=== PATIENT | female | born 1995 | race Caucasian/White ===

== ENCOUNTER 2016-08-10 23:08 | Emergency (ER) | payer OTHER ==
[~2016-08-10] VITALS: Ht 165.1 cm; Wt 49.0 kg
[2016-08-10 23:09] VITALS: BP 135/79; PULSE 86; RESP 14; TEMP 98.3; O2SAT 98
[2016-08-11] MEDS ORDERED: IBUPROFEN 600 MG TAB PO ONE (04:45)
--- NOTE | 2016-08-11 05:03 | PD ---
HPI Chief Complaint: Injury Time Seen by Provider: 04:04 Travel History International Travel<30 days: No Contact w/Intl Traveler<30days: No History of Present Illness HPI Patient is 21 years old. She arrives with left arm pain. She'll follow-up work. She has no other injury to offer. Pain has been constant. It's worse with palpation or range of motion. No numbness tingling. She states she slipped on wet floor. Pain is worse with range of motion. [facility] Past Medical History Medical History: Denies Significant Hx ?: Unknown LMP: 06/22/16 Past Surgical History Surgical History: No Previous Surgery Social History Alcohol Use: No Tobacco Use: No Substance Use: No Allergies-Medications (Allergen,Severity, Reaction): Coded Allergies: No Known Allergies (Unverified , 08/10/16) Reported Meds & Prescriptions Reported Meds & Active Scripts Active No Active Prescriptions or Reported Medications Review of Systems Except as stated in HPI: all other systems reviewed are Neg Physical Exam Narrative GENERAL: 21-year-old female pleasant no acute distress SKIN: Warm and dry. HEAD: Atraumatic. Normocephalic. EYES: Pupils equal and round. No scleral icterus. No injection or drainage. ENT: No nasal bleeding or discharge. Mucous membranes pink and moist. NECK: Trachea midline. No JVD. CARDIOVASCULAR: Regular rate and rhythm. No murmur appreciated. RESPIRATORY: No accessory muscle use. Clear to auscultation. Breath sounds equal bilaterally. GASTROINTESTINAL: Abdomen soft, non-tender, nondistended. Hepatic and splenic margins not palpable. MUSCULOSKELETAL: No obvious deformities. No clubbing. No cyanosis. No edema. Minimal ecchymosis along the medial aspect of the proximal right humerus. Flexion and extension supination pronation at the elbow and wrist are normal. Flexion extension at the wrist is normal. Hand para machine operator is equal bilaterally. Range of motion of the shoulder passively neck is supple limited due to pain. There is no gross deformity. NEUROLOGICAL: Awake and alert. No obvious cranial nerve deficits. Motor grossly within normal limits. Normal speech. PSYCHIATRIC: Appropriate mood and affect; insight and judgment normal. Data Data Last Documented VS Vital Signs Date Time Temp Pulse Resp B/P Pulse Ox O2 Delivery O2 Flow Rate FiO2 08/10/16 23:09 98.3 86 14 135/79 98 Room Air Vital signs reviewed Orders Shoulder, Complete (>2vws) (08/11/16 ) Ibuprofen (Motrin) (08/11/16 04:45) Ice / Cold Pack PRN (08/11/16 04:38) ^ Sling (08/11/16 04:38) MDM Medical Decision Making Medical Screen Exam Complete: Yes Emergency Medical Condition: Yes Medical Record Reviewed: Yes Differential Diagnosis Contusion, dislocation, fracture, bruising, nerve injury Narrative Course Imaging is unremarkable. Ice/sling. NSAIDs as needed. Exam is unimpressive aside from minimal ecchymosis along the medial aspect of the right proximal humerus. Diagnosis Primary Impression: Fall Qualified Code: W19.XXXA - Fall, initial encounter Additional Impressions: Arm injury Qualified Code: S49.91XA - Arm injury, right, initial encounter Contusion Qualified Code: S40.021A - Contusion of right upper arm, initial encounter Ecchymosis Referrals: Primary Care Physician 2 days Additional Instructions: You have a choice when it comes to health care, and we are glad that you chose [facility]. Hopefully, we have met your expectations on today's visit. You are welcome to return to [facility] at any time, as we are committed to meeting the health care needs of our community. Med/Other Pt SpecificInfo: No Change to Meds Scripts No Active Prescriptions or Reported Meds Disposition: 01 DISCHARGE HOME Condition: Brennan Arellano MD Aug 11, 2016 05:03
--- NOTE | 2016-08-11 05:15 | RADRPT ---
EXAM DATE/TIME: 08/11/2016 04:46 [place] COMPARISON: No previous studies available for comparison. INDICATIONS : Fall, right shoulder pain. MEDICAL HISTORY : None. SURGICAL HISTORY : None. ENCOUNTER: Initial ACUITY: 1 day PAIN SCORE: 10/10 LOCATION: Right shoulder FINDINGS: Multiple view examination of the right shoulder demonstrates no evidence of fracture or dislocation. The glenohumeral and acromioclavicular joints are maintained. There is normal range of motion betwe en internal and external rotation. Bony mineralization is normal. CONCLUSION: Unremarkable examination of the right shoulder. Rasheed Bedoya MD on August 11, 2016 at 5:14 Board Certified Radiologist. This report was verified electronically.
== END 2016-08-11 05:42 | disposition home or self-care (01) ==
LOC: NEPE 23:08
DX: S49.91XA Unspecified injury of right shoulder and upper arm, initial encounter (principal); S40.021A Contusion of right upper arm, initial encounter; W01.0XXA Fall on same level from slipping, tripping and stumbling without subsequent striking against object, initial encounter; Y93.01 Activity, walking, marching and hiking; Y92.9 Unspecified place or not applicable; Y99.0 Civilian activity done for income or pay
CPT/HCPCS: 73030; 99283